=== PATIENT | female | born 1965 ===

== ENCOUNTER 2018-08-23 12:18 | Emergency (ER) | payer OTHER ==
[~2018-08-23] VITALS: Ht 170.2 cm; Wt 97.5 kg
[2018-08-23] MEDS ORDERED: COZAAR50 MG (12:48)
[2018-08-23] MEDS ORDERED: SYNTHROID125 MCG (12:49)
[2018-08-23] MEDS ORDERED: TOPROL XL25 M1 (12:49)
== END 2018-08-23 14:54 | disposition home or self-care (01) ==
LOC: ER 12:18
DX: R10.2 Pelvic and perineal pain (principal); N83.292 Other ovarian cyst, left side